=== PATIENT | female | born 1995 | race Two or more races ===

== ENCOUNTER 2018-02-05 21:51 | Emergency (ER) | payer MEDICAID ==
[~2018-02-05] VITALS: Ht 162.6 cm; Wt 90.3 kg
[2018-02-05] MEDS ORDERED: NKM (22:15)
[2018-02-05 22:25] VITALS: BP 129/81
--- NOTE | 2018-02-05 22:37 | Emergency Room Report ---
History of Present Illness General Chief Complaint: Abdominal Pain Source: Patient Present Illness HPI Patient presents with 3 days of nausea vomiting and abdominal pain. The pain is epigastric but also radiates to her back. She's been vomiting. Able to keep some fluids down however she's been eating solid food today. The pain is worse with eating. She's had fever and chills but not documented. There is no diarrhea. She is breast-feeding 7-month-old. There is no dysuria. She's never had pain like this before. Vomit has been food, no coffee grounds or blood. No melena. Pain rated 10/10, aching and burning, constant now. It had gradually increased over the time. LNMP 02/01 - doesn't believe she is . No URI sy, cough, dyspnea, rashes, chest pain, joint pain, dysuria. No known family history of gallstones. Allergies: Coded Allergies: No Known Allergies (Unverified , 02/15/16) Patient History Past Medical History: see triage record Social History: Reports: smoking Social History Narrative works at [employer] Last Menstrual Period: feb 01 Now: No Reviewed Nursing Documentation: PMH: Agreed; PSxH: Agreed Nursing Documentation-PMH Past Medical History: No Stated History Review of Systems All Other Systems: negative except mentioned in HPI Physical Exam Vital Signs Date Time Temp Pulse Resp B/P (MAP) Pulse Ox O2 Delivery O2 Flow Rate FiO2 02/05/18 22:11 99.9 102 18 129/81 98 Room Air Sp02 EP Interpretation: reviewed, normal General Appearance: well appearing, no apparent distress, GCS 15 Head: normocephalic Eyes: bilateral eye normal inspection, bilateral eye PERRL ENT: moist mucus membranes Neck: supple Respiratory: lungs clear, normal breath sounds Cardiovascular #1: regular rate, rhythm Cardiovascular #2: 2+ radial (R) Gastrointestinal: normal inspection, normal bowel sounds, no mass, non- distended, no rebound, guarding - minimal epigastric area, tenderness Genitourinary: no CVA tenderness Musculoskeletal: back normal, gait/station normal, normal range of motion Neurologic: alert, oriented x3, grossly normal Psychiatric: mood/affect normal Skin: normal inspection, warm/dry Medical Decision Making Diagnostic Impression: Primary Impression: Abdominal pain Qualified Codes: R10.13 - Epigastric pain ER Course Patient with epigastric and right upper quadrant pain. Differential includes gastroenteritis, pancreatitis, gallstones, cholecystitis, PUD amongst others. The patient will be evaluated with labs and given IV hydration, Pepcid , Zofran and analgesia. Consider that if elevated WBC and abnormal LFTs may need ultrasound. Clinically, she is at risk for cholecystitis. I also advised her that the medicines given here would enter her breast milk. Labs with normal WBC, H/H. CMP with min elevated glucose and alk phos. UA clear. Still with epigastric pain 9/10 and nausea (after morphine and zofran). Repeat Morphine and Zofan. Patient states significant relief after second dose. I discussed findings and stressed that she was being observed at home and to return if not significantly improved. In any case, she needs to follow p with her PMD next week. No surgical or medical emergency at this time. Patient stable for outpatient observation and treatment. Laboratory Tests Test 02/05/18 22:56 White Blood Count 8.5 K/UL (4.8-10.8) Red Blood Count 4.66 M/UL (4.20-5.40) Hemoglobin 12.7 G/DL (12.0-16.0) Hematocrit 36.8 % (37.0-47.0) L Mean Corpuscular Volume 79 FL (80-99) L Mean Corpuscular Hemoglobin 27.2 PG (27.0-31.0) Mean Corpuscular Hemoglobin Concent 34.4 G/DL (32.0-36.0) Red Cell Distribution Width 13.5 % (11.6-14.8) Platelet Count 276 K/UL (150-450) Mean Platelet Volume 9.2 FL (6.5-10.1) Neutrophils (%) (Auto) 54.7 % (45.0-75.0) Lymphocytes (%) (Auto) 33.2 % (20.0-45.0) Monocytes (%) (Auto) 8.7 % (1.0-10.0) Eosinophils (%) (Auto) 2.9 % (0.0-3.0) Basophils (%) (Auto) 0.5 % (0.0-2.0) Urine Color Pale yellow Urine Appearance Clear Urine pH 6.5 (4.5-8.0) Urine Specific [place] 1.010 (1.005-1.035) Urine Protein Negative (NEGATIVE) Urine Glucose (UA) Negative (NEGATIVE) Urine Ketones Negative (NEGATIVE) Urine Blood 1+ (NEGATIVE) H Urine Nitrite Negative (NEGATIVE) Urine Bilirubin Negative (NEGATIVE) Urine Urobilinogen Normal MG/DL (0.0-1.0) Urine Leukocyte Esterase 1+ (NEGATIVE) H Urine RBC 2-4 /HPF (0 - 2) H Urine WBC 2-4 /HPF (0 - 2) Urine Squamous Epithelial Cells Moderate /LPF (NONE/OCC) H Urine Bacteria None /HPF (NONE) Urine HCG, Qualitative Negative (NEGATIVE) Sodium Level 139 MMOL/L (136-145) Potassium Level 4.1 MMOL/L (3.5-5.1) Chloride Level 103 MMOL/L (98-107) Carbon Dioxide Level 26 MMOL/L (21-32) Anion Gap 10 mmol/L (5-15) Blood Urea Nitrogen 18 mg/dL (7-18) Creatinine 0.9 MG/DL (0.55-1.30) Estimate Glomerular Filtration Rate > 60 mL/min (>60) Glucose Level 109 MG/DL (74-106) H Calcium Level 8.9 MG/DL (8.5-10.1) Total Bilirubin 0.2 MG/DL (0.2-1.0) Aspartate Amino Transferase (AST) 30 U/L (15-37) Alanine Aminotransferase (ALT) 57 U/L (12-78) Alkaline Phosphatase 123 U/L (46-116) H Total Protein 8.7 G/DL (6.4-8.2) H Albumin 4.0 G/DL (3.4-5.0) Globulin 4.7 g/dL Albumin/Globulin Ratio 0.9 (1.0-2.7) L Lipase 204 U/L (73-393) Last Vital Signs Date Time Temp Pulse Resp B/P (MAP) Pulse Ox O2 Delivery O2 Flow Rate FiO2 02/06/18 02:48 98.6 81 18 137/91 97 Room Air Status: improved Disposition: HOME, SELF-CARE Condition: Improved Scripts Tramadol Hcl* (ULTRAM*) 50 Mg Tablet 50 MG ORAL Q6H PRN for For Pain, #6 TAB 0 Refills Prov: Boyd Gilbert MD 02/06/18 Acetaminophen (Tylenol) 325 Mg Tablet 650 MG ORAL Q6H PRN for Prn Pain/Headache/Temp > 101, #20 TAB 0 Refills Prov: Boyd Gilbert MD 02/06/18 Ondansetron Odt* (ZOFRAN ODT*) 4 Mg Tab.rapdis 4 MG BC EVERY 8 HOURS, #6 TAB 1 Refill Prov: Boyd Gilbert MD 02/06/18 Boyd Gilbert MD Feb 05, 2018 22:37
[2018-02-05] MEDS ORDERED: Morphine Sulfate 4mg/ml Inj (IV/IM USE ONLY) IVP ONE (22:45)
[2018-02-05 23:16] LABS: APPEARANCE,URINE CLEAR; BILIRUBIN, URINE NEGATIVE (NEGATIVE); COLOR,URINE PALE YELLOW; GLUCOSE, URINE (UA) NEGATIVE (NEGATIVE); KETONES,URINE NEGATIVE (NEGATIVE); LEUKOCYTE ESTERASE ,URINE 1+ (NEGATIVE); NITRITE,URINE NEGATIVE (NEGATIVE); PH,URINE 6.5 (4.5-8.0); PROTEIN,URINE NEGATIVE (NEGATIVE); UROBILINOGEN,URINE NORMAL MG/DL (0.0-1.0)
[2018-02-05 23:18] LABS: BASOPHILS % (AUTO) 0.5 % (0.0-2.0); EOSINOPHILS % (AUTO) 2.9 % (0.0-3.0); HEMATOCRIT 36.8 % (37.0-47.0); HEMOGLOBIN 12.7 G/DL (12.0-16.0); LYMPHOCYTES % (AUTO) 33.2 % (20.0-45.0); MEAN CORPUSCULAR VOLUME 79 FL (80-99); MONOCYTES % (AUTO) 8.7 % (1.0-10.0); NEUTROPHILS % (AUTO) 54.7 % (45.0-75.0); PLATELET COUNT 276 K/UL (150-450); RED BLOOD COUNT 4.66 M/UL (4.20-5.40); RED CELL DISTRIBUTION WIDTH 13.5 % (11.6-14.8); WHITE BLOOD COUNT 8.5 K/UL (4.8-10.8)
[2018-02-05 23:24] LABS: ANION GAP 10 mmol/L (5-15); BLOOD UREA NITROGEN 18 mg/dL (7-18); CALCIUM 8.9 MG/DL (8.5-10.1); CARBON DIOXIDE 26 MMOL/L (21-32); CHLORIDE 103 MMOL/L (98-107); CREATININE 0.9 MG/DL (0.55-1.30); POTASSIUM 4.1 MMOL/L (3.5-5.1); SODIUM 139 MMOL/L (136-145)
[2018-02-05 23:29] LABS: ALANINE AMINOTRANSFERASE 57 U/L (12-78); ALBUMIN/GLOBULIN RATIO 0.9 (1.0-2.7); ALKALINE PHOSPHATASE 123 U/L (46-116); ASPARTATE AMINO TRANSFERASE 30 U/L (15-37); BILIRUBIN,TOTAL 0.2 MG/DL (0.2-1.0)
[2018-02-06] MEDS ORDERED: Morphine Sulfate 4mg/ml Inj (IV/IM USE ONLY) IVP ONE (01:00)
[2018-02-06] MEDS ORDERED: TRAMADOL HCL50 MG ORAL (02:38)
[2018-02-06] MEDS ORDERED: ONDANSETRON ODT4 MG BC (02:38)
[2018-02-06] MEDS ORDERED: TYLENOL325 MG ORAL (02:38)
[2018-02-06 02:48] VITALS: BP 137/91
== END 2018-02-06 02:50 | disposition home or self-care (01) ==
LOC: EMR 22:30
DX: R10.13 Epigastric pain (principal); R10.11 Right upper quadrant pain; R11.2 Nausea with vomiting, unspecified; F17.200 Nicotine dependence, unspecified, uncomplicated
CPT/HCPCS: 36415; 80053; 81003; 81025; 83690; 85025; 96361; 96374; 96375; 96376; 99284; J2270; J2405; S0028

== ENCOUNTER 2018-03-02 06:56 | Inpatient (IN) | payer SELFPAY ==
[~2018-03-02] VITALS: Ht 162.6 cm; Wt 88.5 kg
[~2018-03-02 06:56] MED LIST: NKM; ONDANSETRON ODT4 MG BC; TRAMADOL HCL50 MG ORAL; TYLENOL325 MG ORAL
[2018-03-02] MEDS ORDERED: NKM (07:08)
[2018-03-02] MEDS ORDERED: D5W IV ONE ×4 (07:15→14:30)
[2018-03-02] MEDS ORDERED: ACETADOTE IV ONE ×5 (07:15→14:30)
[2018-03-02] MEDS ORDERED: Activated Charcoal 50gm/240ml Btl ORAL ONE (07:15)
--- NOTE | 2018-03-02 07:24 | Emergency Room Report ---
History of Present Illness General Chief Complaint: Overdose Source: Patient Present Illness HPI Patient presents brought in by sister reporting that approximately 3 hours prior to arrival at 4:00 in the morning she took a handful of Tylenol she feels likely 20 pills Unclear of the dosage of the medication Unclear the type of Tylenol Patient was vomiting in the morning and therefore was brought in by sister Patient still reports nausea epigastric discomfort Denies any chest pain or shortness of breath denies any lower abdominal pain This was and intentional ingestion Allergies: Coded Allergies: No Known Allergies (Unverified , 02/15/16) Patient History Past Medical History: see triage record Pertinent Family History: none Last Menstrual Period: n/a Reviewed Nursing Documentation: PMH: Agreed; PSxH: Agreed Nursing Documentation-PMH Past Medical History: No Stated History Review of Systems All Other Systems: negative except mentioned in HPI Physical Exam Vital Signs Date Time Temp Pulse Resp B/P (MAP) Pulse Ox O2 Delivery O2 Flow Rate FiO2 03/02/18 07:04 99.1 100 22 126/93 100 Room Air Sp02 EP Interpretation: reviewed, normal General Appearance: no apparent distress - however patient is mildly sluggish Head: normocephalic, atraumatic Eyes: bilateral eye PERRL, bilateral eye EOMI ENT: normal pharynx, no angioedema Neck: supple, thyroid normal Respiratory: lungs clear, no retraction, no accessory muscle use Cardiovascular #1: regular rate, rhythm Gastrointestinal: soft Genitourinary: no CVA tenderness Musculoskeletal: normal inspection Neurologic: alert, oriented x3, responsive Psychiatric: other - Suicidal gesture Skin: normal color, no rash Lymphatic: no adenopathy Procedures Critical Care Time Critical Care Time 80 minutes for initial critical presentation concerning for Tylenol toxicity and overdose requiring acute intervention, contact with poison control not involving any procedural time Medical Decision Making Diagnostic Impression: Primary Impression: Tylenol overdose Additional Impression: Overdose by acetaminophen ER Course Given the patient's presentation initial reports This is extremely dangerous presentation Patient started on IV Mucomyst IV hydration It has been well over 3 hours since time of ingestion therefore charcoal was held Patient's initial Tylenol level is extremely concerning at over 150 Mucomyst IV protocol continues Poison control had been contacted and patient requires high level of care admission Labs Test 03/02/18 07:10 03/02/18 07:16 03/02/18 10:15 White Blood Count 8.7 K/UL (4.8-10.8) Red Blood Count 4.59 M/UL (4.20-5.40) Hemoglobin 12.9 G/DL (12.0-16.0) Hematocrit 38.4 % (37.0-47.0) Mean Corpuscular Volume 84 FL (80-99) Mean Corpuscular Hemoglobin 28.2 PG (27.0-31.0) Mean Corpuscular Hemoglobin Concent 33.7 G/DL (32.0-36.0) Red Cell Distribution Width 13.8 % (11.6-14.8) Platelet Count 265 K/UL (150-450) Mean Platelet Volume 8.5 FL (6.5-10.1) Neutrophils (%) (Auto) 57.7 % (45.0-75.0) Lymphocytes (%) (Auto) 33.0 % (20.0-45.0) Monocytes (%) (Auto) 7.1 % (1.0-10.0) Eosinophils (%) (Auto) 1.4 % (0.0-3.0) Basophils (%) (Auto) 0.8 % (0.0-2.0) Sodium Level 138 MMOL/L (136-145) Potassium Level 3.7 MMOL/L (3.5-5.1) Chloride Level 102 MMOL/L (98-107) Carbon Dioxide Level 21 MMOL/L (21-32) Anion Gap 15 mmol/L (5-15) Blood Urea Nitrogen 11 mg/dL (7-18) Creatinine 0.7 MG/DL (0.55-1.30) Estimat Glomerular Filtration Rate > 60 mL/min (>60) Glucose Level 122 MG/DL (74-106) Calcium Level 8.9 MG/DL (8.5-10.1) Total Bilirubin 0.3 MG/DL (0.2-1.0) Aspartate Amino Transf (AST/SGOT) 34 U/L (15-37) Alanine Aminotransferase (ALT/SGPT) 63 U/L (12-78) Alkaline Phosphatase 104 U/L (46-116) Total Protein 8.2 G/DL (6.4-8.2) Albumin 4.1 G/DL (3.4-5.0) Globulin 4.1 g/dL Albumin/Globulin Ratio 1.0 (1.0-2.7) Salicylates Level 2.3 ug/mL (2.8-20) Acetaminophen Level 153 MCG/ML (10-30) 66 MCG/ML (10-30) Serum Alcohol < 3 mg/dL Urine Color Pale yellow Urine Appearance Clear Urine pH 5 (4.5-8.0) Urine Specific [place] 1.015 (1.005-1.035) Urine Protein 1+ (NEGATIVE) Urine Glucose (UA) Negative (NEGATIVE) Urine Ketones 1+ (NEGATIVE) Urine Blood 2+ (NEGATIVE) Urine Nitrite Negative (NEGATIVE) Urine Bilirubin Negative (NEGATIVE) Urine Urobilinogen Normal MG/DL (0.0-1.0) Urine Leukocyte Esterase 1+ (NEGATIVE) Urine RBC 2-4 /HPF (0 - 2) Urine WBC 2-4 /HPF (0 - 2) Urine Squamous Epithelial Cells Few /LPF (NONE/OCC) Urine Bacteria Occasional /HPF (NONE) Urine HCG, Qualitative Negative (NEGATIVE) Urine Opiates Screen Negative (NEGATIVE) Urine Barbiturates Screen Negative (NEGATIVE) Phencyclidine (PCP) Screen Negative (NEGATIVE) Urine Amphetamines Screen Negative (NEGATIVE) Urine Benzodiazepines Screen Negative (NEGATIVE) Urine Cocaine Screen Negative (NEGATIVE) Urine Marijuana (THC) Screen Negative (NEGATIVE) Rhythm Strip Diag. Results EP Interpretation: yes Rate: 66 Rhythm: NSR, no PVC's, no ectopy Last Vital Signs Date Time Temp Pulse Resp B/P (MAP) Pulse Ox O2 Delivery O2 Flow Rate FiO2 03/02/18 07:04 99.1 100 22 126/93 100 Room Air Status: improved Disposition: ADMITTED INPATIENT Condition: Serious Referrals: NOT CHOSEN IPA/,REFERRING (PCP) Kit Leroy DO Mar 02, 2018 07:24
[2018-03-02 07:27] LABS: BASOPHILS % (AUTO) 0.8 % (0.0-2.0); EOSINOPHILS % (AUTO) 1.4 % (0.0-3.0); HEMATOCRIT 38.4 % (37.0-47.0); HEMOGLOBIN 12.9 G/DL (12.0-16.0); MEAN CORPUSCULAR VOLUME 84 FL (80-99); MONOCYTES % (AUTO) 7.1 % (1.0-10.0); NEUTROPHILS % (AUTO) 57.7 % (45.0-75.0); PLATELET COUNT 265 K/UL (150-450); RED BLOOD COUNT 4.59 M/UL (4.20-5.40); RED CELL DISTRIBUTION WIDTH 13.8 % (11.6-14.8); WHITE BLOOD COUNT 8.7 K/UL (4.8-10.8)
--- NOTE | 2018-03-02 07:36 | NUR ---
ED Nurse Note: Pt was brought into the ER by her sister for taking over 20 pills of Tylenol. Does not know dose and exactly how many. Pt was sleeping but able to answer questions when prompted to. When asked why she took it, she said that she was having problems. Pt lives with her boyfriend. Sister at the bedside. Pt took the medications at 4am with intention. Urine has been collected and sent to lab. As per ERMD, hold charcoal due to pt taking medication 3 hours ago.
[2018-03-02 07:39] VITALS: BP 126/93
--- NOTE | 2018-03-02 07:45 | NUR ---
ED Nurse Note: Currently pt denies to harm herself right now. Will contiue to monitor.
[2018-03-02 07:48] LABS: ANION GAP 15 mmol/L (5-15); BLOOD UREA NITROGEN 11 mg/dL (7-18); CALCIUM 8.9 MG/DL (8.5-10.1); CARBON DIOXIDE 21 MMOL/L (21-32); CHLORIDE 102 MMOL/L (98-107); CREATININE 0.7 MG/DL (0.55-1.30); POTASSIUM 3.7 MMOL/L (3.5-5.1); SODIUM 138 MMOL/L (136-145)
[2018-03-02 07:51] LABS: APPEARANCE,URINE CLEAR; BILIRUBIN, URINE NEGATIVE (NEGATIVE); COLOR,URINE PALE YELLOW; GLUCOSE, URINE (UA) NEGATIVE (NEGATIVE); KETONES,URINE 1+ (NEGATIVE); LEUKOCYTE ESTERASE ,URINE 1+ (NEGATIVE); NITRITE,URINE NEGATIVE (NEGATIVE); PH,URINE 5 (4.5-8.0); PROTEIN,URINE 1+ (NEGATIVE); UROBILINOGEN,URINE NORMAL MG/DL (0.0-1.0)
[2018-03-02 07:52] LABS: ALANINE AMINOTRANSFERASE 63 U/L (12-78); ALBUMIN 4.1 G/DL (3.4-5.0); ALKALINE PHOSPHATASE 104 U/L (46-116); ASPARTATE AMINO TRANSFERASE 34 U/L (15-37); BILIRUBIN,TOTAL 0.3 MG/DL (0.2-1.0)
--- NOTE | 2018-03-02 08:02 | NUR ---
ED Nurse Note: Was notified by lab that pt is hcg neg.
[2018-03-02 08:41] VITALS: BP 118/87
--- NOTE | 2018-03-02 10:24 | NUR ---
ED Nurse Note: Blood for second tylenol level has been collected and sent to lab.
--- NOTE | 2018-03-02 10:48 | NUR ---
ED Nurse Note: Spoke to lab, they will process tylenol level.
[2018-03-02 10:49] VITALS: BP 129/91
--- NOTE | 2018-03-02 11:57 | NUR ---
ED Nurse Note: Gave telephone order to SHERLYN Del Valle.
--- NOTE | 2018-03-02 11:58 | NUR ---
ED Nurse Note: As per ERMD, can send pt up to unit with 2nd bag of acetadote hanging. Waiting for admission packet.
--- NOTE | 2018-03-02 12:00 | NUR ---
NURSE NOTES: Report received from SHERLYN Wall from ED. Awaiting for the patient.
--- NOTE | 2018-03-02 12:35 | NUR ---
ED Nurse Note: PT TAKEN UP TO [facility] VIA GURNEY ON [employer] ME[employer]OR WITH PATENT IV RUNNING MEDICATION, AND ALL BELONGINGS ACCOMPANIED BY SHERLYN BAUTISTA AND EMT.
--- NOTE | 2018-03-02 12:40 | NUR ---
NURSE NOTES: Patient arrived to unit via gurney accompanied with RN. Pt. is alert and oriented x 4 and verbally responsive. Belongings checked with patient. Complains of pain on right wrist when touch. Pt. stated that she might hit her hand. No distress noted in room air. IV site intact and patent. Skin assessment done with no skin problems noted. Vitals stable. clinical research monitor applied to the patient. Family member at bedside. Bed in lowest position. Call light within reach. Will continue to monitor.
[2018-03-02 12:50] VITALS: BP 139/98
[2018-03-02] MEDS ORDERED: D5W IVPB ONE (13:30)
[2018-03-02] MEDS ORDERED: ACETADOTE IVPB ONE (13:30)
--- NOTE | 2018-03-02 14:28 | History and Physical ---
History of Present Illness General Date patient seen: Mar 02, 2018 Time patient seen: 14:18 Reason for Hospitalization: Overdose Present Illness HPI 23 yo female with no sig pmh presents by sister reporting that approximately 3 hours prior to arrival at 4:00 in the morning she took a handful of Tylenol she feels likely 20 pills. Patient is unclear of the dosage of medication or type. Patient was having nausea/vomiting and epigastric abdominal pain this morning. Denies any cp or sob. Patient admits to Suicide Attempt, this was an intentional ingestion, states she has been feeling depressed, denies SI at this moment, when asking what lead her to feel this way she states that she "doesnt want to talk about it". Denies any previous attempts in the past. patient started on acedote in ED. psych consulted. tylenol level 153 social hx reviewed: denies alcohol use or drug use, denies smoking code status reviewed: full code past fam hx reviewed, denies any sig past fam hx Allergies: Coded Allergies: No Known Allergies (Unverified , 02/15/16) Medication History Scheduled No Known Medications* (NKM - No Known Medications*), 0 ., (Reported) No Known Medications* (NKM - No Known Medications*), 0 ., (Reported) Ondansetron Odt* (Zofran Odt*), 4 MG BC EVERY 8 HOURS Scheduled PRN Acetaminophen (Tylenol), 650 MG ORAL Q6H PRN for Prn Pain/Headache/Temp > 101 Tramadol Hcl* (Ultram*), 50 MG ORAL Q6H PRN for For Pain Patient History History Provided By: Patient, Medical Record Healthcare decision maker Resuscitation status Full Code Advanced Directive on File Review of Systems ROS Narrative 14 point ROS reviewed and negative except for the above HPI Physical Exam General Appearance: WD/WN, no apparent distress, alert Lines, tubes and drains: peripheral HEENT: normocephalic, atraumatic, mucous membranes moist, PERRL Neck: non-tender, normal alignment, supple, normal inspection Respiratory/Chest: chest wall non-tender, lungs clear, normal breath sounds, no respiratory distress, no accessory muscle use Cardiovascular/Chest: normal peripheral pulses, normal rate, regular rhythm Abdomen: normal bowel sounds, non tender, soft, no organomegaly, no mass Extremities: normal range of motion, non-tender, normal inspection, no calf tenderness, normal capillary refill Skin Exam: normal pigmentation, warm/dry Neurologic: quick mixer operator II-XII grossly normal, no motor/sensory deficits, alert, oriented x 3, responsive, normal mood/affect Last 24 Hour Vital Signs Date Time Temp Pulse Resp B/P (MAP) Pulse Ox O2 Delivery O2 Flow Rate FiO2 03/02/18 13:17 97.5 88 22 109/88 100 Room Air 03/02/18 13:07 Room Air 03/02/18 12:50 97.3 82 20 139/98 (112) 98 03/02/18 10:49 98.8 85 17 129/91 100 Room Air 03/02/18 08:41 98.9 76 16 118/87 99 Room Air 03/02/18 07:39 99.1 100 21 126/93 99 Room Air 03/02/18 07:39 100 21 Room Air 99 03/02/18 07:04 99.1 100 22 126/93 100 Room Air Laboratory Tests Test 03/02/18 07:10 03/02/18 07:16 03/02/18 10:15 White Blood Count 8.7 K/UL (4.8-10.8) Red Blood Count 4.59 M/UL (4.20-5.40) Hemoglobin 12.9 G/DL (12.0-16.0) Hematocrit 38.4 % (37.0-47.0) Mean Corpuscular Volume 84 FL (80-99) Mean Corpuscular Hemoglobin 28.2 PG (27.0-31.0) Mean Corpuscular Hemoglobin Concent 33.7 G/DL (32.0-36.0) Red Cell Distribution Width 13.8 % (11.6-14.8) Platelet Count 265 K/UL (150-450) Mean Platelet Volume 8.5 FL (6.5-10.1) Neutrophils (%) (Auto) 57.7 % (45.0-75.0) Lymphocytes (%) (Auto) 33.0 % (20.0-45.0) Monocytes (%) (Auto) 7.1 % (1.0-10.0) Eosinophils (%) (Auto) 1.4 % (0.0-3.0) Basophils (%) (Auto) 0.8 % (0.0-2.0) Sodium Level 138 MMOL/L (136-145) Potassium Level 3.7 MMOL/L (3.5-5.1) Chloride Level 102 MMOL/L (98-107) Carbon Dioxide Level 21 MMOL/L (21-32) Anion Gap 15 mmol/L (5-15) Blood Urea Nitrogen 11 mg/dL (7-18) Creatinine 0.7 MG/DL (0.55-1.30) Estimat Glomerular Filtration Rate > 60 mL/min (>60) Glucose Level 122 MG/DL (74-106) H Calcium Level 8.9 MG/DL (8.5-10.1) Total Bilirubin 0.3 MG/DL (0.2-1.0) Aspartate Amino Transf (AST/SGOT) 34 U/L (15-37) Alanine Aminotransferase (ALT/SGPT) 63 U/L (12-78) Alkaline Phosphatase 104 U/L (46-116) Total Protein 8.2 G/DL (6.4-8.2) Albumin 4.1 G/DL (3.4-5.0) Globulin 4.1 g/dL Albumin/Globulin Ratio 1.0 (1.0-2.7) Salicylates Level 2.3 ug/mL (2.8-20) L Acetaminophen Level 153 MCG/ML (10-30) H 66 MCG/ML (10-30) H Serum Alcohol < 3 mg/dL Urine Color Pale yellow Urine Appearance Clear Urine pH 5 (4.5-8.0) Urine Specific [place] 1.015 (1.005-1.035) Urine Protein 1+ (NEGATIVE) H Urine Glucose (UA) Negative (NEGATIVE) Urine Ketones 1+ (NEGATIVE) H Urine Blood 2+ (NEGATIVE) H Urine Nitrite Negative (NEGATIVE) Urine Bilirubin Negative (NEGATIVE) Urine Urobilinogen Normal MG/DL (0.0-1.0) Urine Leukocyte Esterase 1+ (NEGATIVE) H Urine RBC 2-4 /HPF (0 - 2) H Urine WBC 2-4 /HPF (0 - 2) Urine Squamous Epithelial Cells Few /LPF (NONE/OCC) Urine Bacteria Occasional /HPF (NONE) Urine HCG, Qualitative Negative (NEGATIVE) Urine Opiates Screen Negative (NEGATIVE) Urine Barbiturates Screen Negative (NEGATIVE) Phencyclidine (PCP) Screen Negative (NEGATIVE) Urine Amphetamines Screen Negative (NEGATIVE) Urine Benzodiazepines Screen Negative (NEGATIVE) Urine Cocaine Screen Negative (NEGATIVE) Urine Marijuana (THC) Screen Negative (NEGATIVE) Height (Feet): 5 Height (Inches): 4.00 Weight (Pounds): 170 Medications Current Medications Medications (Trade) Dose Ordered Sig/Paul Route PRN Reason Start Time Stop Time Status Last Admin Dose Admin Acetylcysteine 7700 mg/Dextrose 1,038.5 ml @ 62.5 mls/ hr ONCE ONCE IV 03/02/18 14:30 03/03/18 07:06 Assessment/Plan Status: stable Assessment/Plan #Suicidal Attempt #Depression #Tylenol Overdose tylenol level 153, trend tylenol level q6hrs, seems to be uptrending acetadote ordered IVF psych consult sitter safety tray for meals denies ingesting anything else denies any SI currently q4hr neuro checks tele diet: regular DVT Prophylaxis: SCD, HSQ Code Status: Full Hospital Classification Declaration: Based on this initial evaluation, and depending on the patient's clinical course, I anticipate that this patient will require hospitalization for 2-3 days for tylenol overdose and Suicide attempt and close respiratory/hemodynamic monitoring. Disposition: Once the patient is stable to leave the hospital, I anticipate the patient will likely be discharged to the following environment: home with HH vs SNF I spent 69 minutes on this patient's case, and 45 minutes were dedicated to counseling and/or care coordination. Discussed with patient/family, nursing staff, SW/CM regarding clinical status, treatment course, and disposition planning. Time of note may not reflect time of encounter. ---- Date of Discussion: 03/02/18 A [id number] discussion with the patient regarding the patient's advanced care planning took place during this hospitalization on the above date. The discussion included the explanation and discussion of advance directives and associated forms/documents, as well as the patient's current code status. We also discussed at length the patient's medical conditions (both acute and chronic), general prognosis, treatment options, and goals of care. The following summarizes the discussion: Advance Care Planning/Goals of Care: - Will attempt to fill out an AD and/or POLST with the patient prior to discharge, if not already completed - Continue current evaluation and management of any acute and chronic medical issues - Will continue to support the patient/family - Will continue to discuss both short- and long-term goals of care DPOA-HC/Surrogate Decision Maker: None currently appointed Code Status: Full Code AD Forms/Documents Completed: Deferred A total of 35 minutes was spent on this discussion, including counseling, answering questions, and completing, if any, pertinent advanced care planning forms/documents. Yogi Ross MD Mar 02, 2018 14:28
[2018-03-02 16:00] VITALS: BP 138/93
--- NOTE | 2018-03-02 18:59 | NUR ---
HAND-OFF: Report given to SHERLYN Ellis. Stable condition.
--- NOTE | 2018-03-02 19:05 | NUR ---
NURSE NOTES: Report received from SHERLYN Del Valle. Observed pt lying on the bed, talking with family member. Family member at the bed side and going to stay with her tonight. Telemonitor: SR, with no distress noted. Pt on room air with saturating at 100%. IV site on L AC 18G, intact and patent. When asked about harming herself, pt answers yes and saying pt has problem with life situation but no detailed plan. Pt has pain on right wrist, 10/10 and awaiting for X-ray result. Bed in the lowest position. Side rails up x2. Call light within reach. Will continue to monitor.
[2018-03-02 20:00] VITALS: BP 120/78
--- NOTE | 2018-03-02 20:21 | Diagnostic Imaging Report ---
EXAM: XR Right Wrist Complete, 3 or More Views CLINICAL HISTORY: PAIN TECHNIQUE: Frontal, lateral and oblique views of the right wrist. COMPARISON: No relevant prior studies available. FINDINGS: Bones/joints: Possible nondisplaced hamate fracture, versus artifact. No acute dislocation. Soft tissues: Soft tissue swelling. No radiopaque foreign body. IMPRESSION: Possible nondisplaced hamate fracture, versus artifact.
[2018-03-02] MEDS: Morphine Sulfate 4mg/ml Inj (IV/IM USE ONLY) IVP PRN (22:05)
--- NOTE | 2018-03-02 22:57 | NUR ---
NURSE NOTES: Observed pt lying on the bed, talking with her sister on bed side. X-ray result done and notified to MD. PRN pain med given. Will continue to monitor.
[2018-03-03] VITALS: BP 123/67
[2018-03-03] MEDS: Morphine Sulfate 4mg/ml Inj (IV/IM USE ONLY) IVP PRN ×3 (01:33→16:38)
[2018-03-03 04:00] VITALS: BP 130/80
[2018-03-03 07:28] LABS: BASOPHILS % (AUTO) 0.5 % (0.0-2.0); EOSINOPHILS % (AUTO) 2.8 % (0.0-3.0); HEMATOCRIT 35.9 % (37.0-47.0); HEMOGLOBIN 12.5 G/DL (12.0-16.0); LYMPHOCYTES % (AUTO) 24.9 % (20.0-45.0); MEAN CORPUSCULAR VOLUME 83 FL (80-99); MONOCYTES % (AUTO) 6.2 % (1.0-10.0); NEUTROPHILS % (AUTO) 65.5 % (45.0-75.0); PLATELET COUNT 223 K/UL (150-450); RED BLOOD COUNT 4.33 M/UL (4.20-5.40); RED CELL DISTRIBUTION WIDTH 13.7 % (11.6-14.8)
[2018-03-03 07:39] LABS: ALANINE AMINOTRANSFERASE 54 U/L (12-78); ALBUMIN 3.6 G/DL (3.4-5.0); ALKALINE PHOSPHATASE 94 U/L (46-116); ANION GAP 11 mmol/L (5-15); ASPARTATE AMINO TRANSFERASE 18 U/L (15-37); BILIRUBIN,TOTAL 0.4 MG/DL (0.2-1.0); BLOOD UREA NITROGEN 8 mg/dL (7-18); CALCIUM 8.9 MG/DL (8.5-10.1); CARBON DIOXIDE 24 MMOL/L (21-32); CHLORIDE 103 MMOL/L (98-107); CREATININE 0.7 MG/DL (0.55-1.30); POTASSIUM 3.4 MMOL/L (3.5-5.1); SODIUM 138 MMOL/L (136-145)
--- NOTE | 2018-03-03 07:43 | General Progress Note ---
Assessment/Plan Status: stable Assessment/Plan #Suicidal Attempt #Depression #Tylenol Overdose #Nausea tylenol level 153 on admit, trended tylenol level, neg now acetadote given cont to monitor LFTs, seems to have stabilized zofran prn IVF psych consulted, pending recs sitter safety tray for meals tylenol and alcohol ingestion denies any SI currently q4hr neuro checks tele #Smoker smoking 1-2 cigarettes per day educated on smoking cessation for over 15 mins today, patient states she understands and will try to stop #Alcohol abuse drank alcohol yesterday, unsure of how much denies daily use of alcohol or past abuse educated on alcohol cessation for over 15 mins today , states she understands diet: regular DVT Prophylaxis: SCD, HSQ Code Status: Full Hospital Classification Declaration: Based on this initial evaluation, and depending on the patient's clinical course, I anticipate that this patient will require hospitalization for 2-3 days for tylenol overdose and Suicide attempt and close respiratory/hemodynamic monitoring. Disposition: Once the patient is stable to leave the hospital, I anticipate the patient will likely be discharged to the following environment: home with vs SNF I spent 56 minutes on this patient's case, and 43 minutes were dedicated to counseling and/or care coordination. Discussed with patient/family, nursing staff, SW/CM regarding clinical status, treatment course, and disposition planning. Time of note may not reflect time of encounter. ---- Date of Discussion: 03/02/18 A [id number] discussion with the patient regarding the patient's advanced care planning took place during this hospitalization on the above date. The discussion included the explanation and discussion of advance directives and associated forms/documents, as well as the patient's current code status. We also discussed at length the patient's medical conditions (both acute and chronic), general prognosis, treatment options, and goals of care. The following summarizes the discussion: Advance Care Planning/Goals of Care: - Will attempt to fill out an AD and/or POLST with the patient prior to discharge, if not already completed - Continue current evaluation and management of any acute and chronic medical issues - Will continue to support the patient/family - Will continue to discuss both short- and long-term goals of care DPOA-HC/Surrogate Decision Maker: None currently appointed Code Status: Full Code AD Forms/Documents Completed: Deferred A total of 35 minutes was spent on this discussion, including counseling, answering questions, and completing, if any, pertinent advanced care planning forms/documents. Subjective Date patient seen: Mar 03, 2018 Time patient seen: 07:38 Allergies: Coded Allergies: No Known Allergies (Unverified , 02/15/16) Subjective f/u SI, tylenol overdose today admits to alcohol use yesterday however denies regular use of alcohol also admits to smoking around 1-2 cigarettes per day denies any other drug use states overall she is feeling a bit better however is having nausea but no vomiting, no abd pain feels a bit weak currently denying SI sitter at bedside family sleeping in room with patient denies fevers/chills/cp/sob/diarrhea/constipation ROS: 14 point ROS reviewed and negative except per the above subjective Objective Last 24 Hour Vital Signs Date Time Temp Pulse Resp B/P (MAP) Pulse Ox O2 Delivery O2 Flow Rate FiO2 03/03/18 04:00 98.5 79 20 130/80 (97) 98 03/03/18 04:00 80 03/03/18 04:00 Room Air 03/03/18 00:00 Room Air 03/03/18 00:00 81 03/03/18 00:00 98.8 89 20 123/67 (85) 100 03/02/18 20:00 98.5 88 20 120/78 (92) 100 03/02/18 20:00 Room Air 03/02/18 16:00 Room Air 03/02/18 16:00 81 03/02/18 16:00 97.5 69 20 138/93 (108) 99 03/02/18 13:17 97.5 88 22 109/88 100 Room Air 03/02/18 13:10 78 03/02/18 13:07 Room Air 03/02/18 12:50 97.3 82 20 139/98 (112) 98 03/02/18 10:49 98.8 85 17 129/91 100 Room Air 03/02/18 08:41 98.9 76 16 118/87 99 Room Air 03/02/18 07:39 99.1 100 21 126/93 99 Room Air 03/02/18 07:39 100 21 Room Air 99 Intake and Output 03/02/18 03/03/18 19:00 07:00 Intake Total 488.5 ml 887.5 ml Balance 488.5 ml 887.5 ml Intake Oral 250 ml 200 ml IV Total 238.5 ml 687.5 ml # Voids 4 3 Laboratory Tests 03/02/18 10:15: Acetaminophen Level 66H 03/02/18 19:25: Acetaminophen Level < 2L 03/03/18 00:50: Acetaminophen Level < 2L 03/03/18 06:50: Acetaminophen Level [Pending], White Blood Count 10.0, Red Blood Count 4.33, Hemoglobin 12.5, Hematocrit 35.9L, Mean Corpuscular Volume 83, Mean Corpuscular Hemoglobin 28.8, Mean Corpuscular Hemoglobin Concent 34.7, Red Cell Distribution Width 13.7, Platelet Count 223, Mean Platelet Volume 8.8, Neutrophils (%) (Auto) 65.5, Lymphocytes (%) (Auto) 24.9, Monocytes (%) (Auto) 6.2, Eosinophils (%) (Auto) 2.8, Basophils (%) (Auto) 0.5, Sodium Level [Pending ], Potassium Level [Pending], Chloride Level [Pending], Carbon Dioxide Level [ Pending], Blood Urea Nitrogen [Pending], Creatinine [Pending], Estimat Glomerular Filtration Rate [Pending], Glucose Level [Pending], Calcium Level [ Pending], Total Bilirubin [Pending], Aspartate Amino Transf (AST/SGOT) [Pending] , Alanine Aminotransferase (ALT/SGPT) [Pending], Alkaline Phosphatase [Pending] , Total Protein [Pending], Albumin [Pending], Globulin [Pending] Height (Feet): 5 Height (Inches): 4.00 Weight (Pounds): 170 Objective General Appearance: WD/WN, no apparent distress, alert Lines, tubes and drains: peripheral HEENT: normocephalic, atraumatic, mucous membranes moist, PERRL Neck: non-tender, normal alignment, supple, normal inspection Respiratory/Chest: chest wall non-tender, lungs clear, normal breath sounds, no respiratory distress, no accessory muscle use Cardiovascular/Chest: normal peripheral pulses, normal rate, regular rhythm Abdomen: normal bowel sounds, non tender, soft, no organomegaly, no mass Extremities: normal range of motion, non-tender, normal inspection, no calf tenderness, normal capillary refill Skin Exam: normal pigmentation, warm/dry Neurologic: director of grants II-XII grossly normal, no motor/sensory deficits, alert, oriented x 3, responsive, normal mood/affect Yogi Ross MD Mar 03, 2018 07:43
--- NOTE | 2018-03-03 07:51 | NUR ---
HAND-OFF: Report given to SHERLYN Mcpherson. Observed pt talking with her sister on the bed. No acute distress noted at this time.
[2018-03-03 08:00] VITALS: BP 117/74
--- NOTE | 2018-03-03 08:00 | NUR ---
NURSE NOTES: Patient awake alert&oriented x4. Sitter and family at bedside. Unable to ask patient regarding suicidal thoughts with family present - will re-assess when family is awake and steps out of the room. Patient on room air. Saturating 100%. Patient on regular diet. No bowel movement for 3 days but patient stated that's her regular routine. R wrist fracture possibility through x-ray. L AC 18. Potassium 3.4 dr. Ross aware orders obtained. Lung sounds clear. Bowel sounds present on 4 quadrants. No pain or distress noted. patient denies any discomfort at this time. VSS. No distress noted. HOB elevated, Bed on lowest position, call light within reach, bed alarm on for safety. Will continue plan of care.
--- NOTE | 2018-03-03 10:22 | NUR ---
Social Work This Sw met with patient due to a recent overdose with Tylenol. Patient stating she had been using excessive alcohol ("because of the New Years, I don't usually drink much alcohol"). Patient explained she has been having depression for the past six months, not taking any medication and "I would like some help with this." Patient admitted to having suicidal thoughts today as well. Sterling and her sister currently at bedside with patient. Patient explained she would be agreeable to transferring to an inpatient Psychiatric unit for further assistance. This Sw also provided outpatient mental health resources and crisis suicide hotline as well. Pending Dr. Harden, Psychiatry recommendations at this time. Patient stating she lives with her boyfriend and two children (ages 8 and 8 months). Patient denied any domestic violence, nor history of substance abuse, mental health concerns in the past. This SW questioning possible depression symptoms as well. SW to follow.
--- NOTE | 2018-03-03 10:44 | Consultation ---
History of Present Illness General Chief Complaint: Overdose Present Illness HPI 23 yo female with hx of low level of depression that got worse over the past several months. The pt was bib sister reporting that the pt took Tylenol (20 pills). The pt endorses depressed mood, anhedonia, fatigue and suicidal thoughts. the pt s sister was in the room and accompanying the pt. the pt is not having a plan. the pt has no intention to end her life however was afraid to be discharged and go home in this condition. the pt has a baby who has been with the pts mother. the pt stated that she has been through relationship issues with the boyfriend. the pt stated that the bf has cheated on her for a while. the pt would like to be started on sleeping and depressive medications. The pt does not endorse any psychotic/manic sxs. Allergies: Coded Allergies: No Known Allergies (Unverified , 02/15/16) Medication History Scheduled No Known Medications* (NKM - No Known Medications*), 0 ., (Reported) No Known Medications* (NKM - No Known Medications*), 0 ., (Reported) Ondansetron Odt* (Zofran Odt*), 4 MG BC EVERY 8 HOURS Scheduled PRN Acetaminophen (Tylenol), 650 MG ORAL Q6H PRN for Prn Pain/Headache/Temp > 101 Tramadol Hcl* (Ultram*), 50 MG ORAL Q6H PRN for For Pain Patient History History Provided By: Patient, Family Member, Medical Record, PMD Healthcare decision maker Resuscitation status Full Code Advanced Directive on File Past Medical/Surgical History Past Medical/Surgical History: (1) Palpitations (2) Overdose by acetaminophen (3) Tylenol overdose Review of Systems Psychiatric: Reports: anxiety, depressed feelings, emotional problems, SI - no plan Physical Exam General Appearance: WD/WN, alert, moderate distress, obese Neurologic: oriented x 3, responsive, depressed affect - tearful' Last 24 Hour Vital Signs Date Time Temp Pulse Resp B/P (MAP) Pulse Ox O2 Delivery O2 Flow Rate FiO2 03/03/18 08:00 106 03/03/18 08:00 Room Air 03/03/18 08:00 97.9 96 20 117/74 (88) 98 03/03/18 04:00 98.5 79 20 130/80 (97) 98 03/03/18 04:00 80 03/03/18 04:00 Room Air 03/03/18 00:00 Room Air 03/03/18 00:00 81 03/03/18 00:00 98.8 89 20 123/67 (85) 100 03/02/18 20:00 98.5 88 20 120/78 (92) 100 03/02/18 20:00 Room Air 03/02/18 16:00 Room Air 03/02/18 16:00 81 03/02/18 16:00 97.5 69 20 138/93 (108) 99 03/02/18 13:17 97.5 88 22 109/88 100 Room Air 03/02/18 13:10 78 03/02/18 13:07 Room Air 03/02/18 12:50 97.3 82 20 139/98 (112) 98 03/02/18 10:49 98.8 85 17 129/91 100 Room Air Intake and Output 03/02/18 03/03/18 19:00 07:00 Intake Total 488.5 ml 887.5 ml Balance 488.5 ml 887.5 ml Intake Oral 250 ml 200 ml IV Total 238.5 ml 687.5 ml # Voids 4 3 Laboratory Tests Test 03/02/18 19:25 03/03/18 00:50 03/03/18 06:50 Acetaminophen Level < 2 MCG/ML (10-30) L < 2 MCG/ML (10-30) L < 2 MCG/ML (10-30) L White Blood Count 10.0 K/UL (4.8-10.8) Red Blood Count 4.33 M/UL (4.20-5.40) Hemoglobin 12.5 G/DL (12.0-16.0) Hematocrit 35.9 % (37.0-47.0) L Mean Corpuscular Volume 83 FL (80-99) Mean Corpuscular Hemoglobin 28.8 PG (27.0-31.0) Mean Corpuscular Hemoglobin Concent 34.7 G/DL (32.0-36.0) Red Cell Distribution Width 13.7 % (11.6-14.8) Platelet Count 223 K/UL (150-450) Mean Platelet Volume 8.8 FL (6.5-10.1) Neutrophils (%) (Auto) 65.5 % (45.0-75.0) Lymphocytes (%) (Auto) 24.9 % (20.0-45.0) Monocytes (%) (Auto) 6.2 % (1.0-10.0) Eosinophils (%) (Auto) 2.8 % (0.0-3.0) Basophils (%) (Auto) 0.5 % (0.0-2.0) Sodium Level 138 MMOL/L (136-145) Potassium Level 3.4 MMOL/L (3.5-5.1) L Chloride Level 103 MMOL/L (98-107) Carbon Dioxide Level 24 MMOL/L (21-32) Anion Gap 11 mmol/L (5-15) Blood Urea Nitrogen 8 mg/dL (7-18) Creatinine 0.7 MG/DL (0.55-1.30) Estimat Glomerular Filtration Rate > 60 mL/min (>60) Glucose Level 112 MG/DL (74-106) H Calcium Level 8.9 MG/DL (8.5-10.1) Magnesium Level 1.7 MG/DL (1.8-2.4) L Total Bilirubin 0.4 MG/DL (0.2-1.0) Aspartate Amino Transf (AST/SGOT) 18 U/L (15-37) Alanine Aminotransferase (ALT/SGPT) 54 U/L (12-78) Alkaline Phosphatase 94 U/L (46-116) Total Protein 7.3 G/DL (6.4-8.2) Albumin 3.6 G/DL (3.4-5.0) Globulin 3.7 g/dL Albumin/Globulin Ratio 1.0 (1.0-2.7) Height (Feet): 5 Height (Inches): 4.00 Weight (Pounds): 195 Medications Current Medications Medications (Trade) Dose Ordered Sig/Paul Route PRN Reason Start Time Stop Time Status Last Admin Dose Admin Morphine Sulfate (Morphine Sulfate) 4 mg Q6HR PRN IVP For Pain 03/02/18 22:00 03/09/18 21:59 03/03/18 05:35 Assessment/Plan Problem List: (1) MDD (major depressive disorder), recurrent episode, severe ICD Codes: F33.2 - Major depressive disorder, recurrent severe without psychotic features SNOMED: [id number] Assessment/Plan voluntary to psych no pet team dc sitter celexa 20mg qam restoril 15mg qhs MIPS Medication Reconciliation Is this a Psycho/Diag encounte: Yes Unhealthy Alcohol Use 431 (psycho/diag only) Patient was screened for unhealthy alcohol use today or within the past 2 years. Patient was NOT identified as an unhealthy alcohol user.I Obtained, updated or reviewed the patient's current medications (including prescription, over the counter, herbal, and nutritional supplements).Patient was screened for unhealthy alcohol use today or within the past 2 years. Patient was NOT identified as an unhealthy alcohol user. Tobacco Use 226 (psycho/diag only) Patient was screened for tobacco use today or within the past 2 years. Patient was NOT identified as a tobacco user. BMI 128 (psycho/diag only) BMI was documented today or within the past year. BMI was outside normal parameters, and the patient received counseling. Depression 134,411,370 (psycho/diag only) Depression screening was performed today. the pt is severely depressed and will be transferred to psych unit still suicidal PHQ-9 Score: 20 Does this Patient have Dementi: No Michelle Harden MD Mar 03, 2018 10:44
[2018-03-03] MEDS ORDERED: Citalopram Hydrobromide 10mg Tab ORAL SCH (10:47)
[2018-03-03 12:00] VITALS: BP 112/76
--- NOTE | 2018-03-03 12:00 | NUR ---
NURSE NOTES: Patient denied any thoughts or harming herself or others. Due to wrist fracture - asked patient if she is in any danger or potential abuse - patient denied this as well. Able to self reposition. Stated she wanted to sleep. VSS. Sitter in the room, family at bedside. No contraband on or around patient / patient room. Will continue to monitor patient.
--- NOTE | 2018-03-03 13:31 | NUR ---
CASE MANAGEMENT: REVIEW BIBA FROM HOME CC: OVERDOSE SI: OVERDOSE T 97.3 HR 76 RR 20 BP 118/87 SAT 98% ROOM AIR ACETAMINOPHEN 66 IS: NS IVF BOLUS X1 CHARCOAL PO X1 ACETYLCYSTEINE IV X1 INTERQUAL CRITERIA MET: PATIENT ADMITTED TO STEP DOWN UNIT 03/02/2018 DCP: PATIENT IS FROM HOME CASE MANAGEMENT: REVIEW SI: OVERDOSE T 97.9 HR 96 RR 20 BP 117/74 SAT 98% ROOM AIR ACETAMINOPHEN <2 IS: CITALOPRAM PO QD MORPHINE IV Q6HR PRN STEP DOWN STATUS DCP: PATIENT IS FROM HOME
--- NOTE | 2018-03-03 14:06 | NUR ---
NURSE NOTES: NURSE NOTES: Report given to Candis RN using SBAR. VSS. No distress noted.
--- NOTE | 2018-03-03 15:38 | NUR ---
Social Work This Sw spoke with Pily French who explained patient is pending Medi ml, will not have insurance reinstated immediately. This Sw spoke with intake @ [facility] placement who explained they do not assist with placement from the floor, only from ER. This Sw contacted [facility] who will not accept patient without insurance. This SW contacted [facility] @ [phone] who will evaluate.
[2018-03-03 16:00] VITALS: BP 115/65
--- NOTE | 2018-03-03 18:15 | NUR ---
NURSE NOTES: Patient's family at bedside. Patient is socializing well with her kids.
--- NOTE | 2018-03-03 19:20 | NUR ---
NURSE NOTES: Report received from SHERLYN James. Observed pt taking with her family members on the bed side. A/O x4. Denies pain at this time. SR with telemonitor. Pt on room air with no distress noted. IV site on L AC 18G, SL, intact and patent. Bed in the lowest position. Call light within reach. Side rails up x2. Will continue to monitor.
[2018-03-03 20:00] VITALS: BP 125/76
--- NOTE | 2018-03-03 20:50 | NUR ---
NURSE NOTES:Patient receive aimee Thomason R.N. FROM [facility] ROOM # 242 Bed 1 TO 320 bed 1 Patient A/A/AOX4. Patient denies any pain at this time . no sob/ no n/v noted . LAC G#18 Patent and intact . patient skin intact . patient family at bedside . patient personal belongings with patient and family members . patient ambulate to the bathroom and voided freely without difficulties . patient instructed to uses call light when needed. will continue to monitor.
--- NOTE | 2018-03-03 21:00 | NUR ---
TRANSFER TO FLOOR: Patient transferred to Med-Surg. Report given to Damaris. Belongings given to RN. Telemonitor taken out. Family member on the bedside. No acute distress noted at this time.
[2018-03-03] MEDS ORDERED: Morphine Sulfate 4mg/ml Inj (IV/IM USE ONLY) IVP PRN (22:00)
[2018-03-04] VITALS: BP 119/77
[2018-03-04 04:00] VITALS: BP 122/79
[2018-03-04 06:51] LABS: BASOPHILS % (AUTO) 0.6 % (0.0-2.0); EOSINOPHILS % (AUTO) 6.3 % (0.0-3.0); HEMATOCRIT 36.8 % (37.0-47.0); HEMOGLOBIN 12.5 G/DL (12.0-16.0); LYMPHOCYTES % (AUTO) 37.8 % (20.0-45.0); MEAN CORPUSCULAR VOLUME 85 FL (80-99); MONOCYTES % (AUTO) 6.7 % (1.0-10.0); NEUTROPHILS % (AUTO) 48.6 % (45.0-75.0); PLATELET COUNT 223 K/UL (150-450); RED BLOOD COUNT 4.33 M/UL (4.20-5.40); WHITE BLOOD COUNT 9.3 K/UL (4.8-10.8)
[2018-03-04 07:07] LABS: ANION GAP 9 mmol/L (5-15); BLOOD UREA NITROGEN 10 mg/dL (7-18); CARBON DIOXIDE 27 MMOL/L (21-32); CHLORIDE 102 MMOL/L (98-107); CREATININE 0.7 MG/DL (0.55-1.30); POTASSIUM 3.9 MMOL/L (3.5-5.1); SODIUM 138 MMOL/L (136-145)
--- NOTE | 2018-03-04 07:14 | Discharge Summary ---
Discharge Summary Hospital Course Date of Admission Mar 02, 2018 at 08:45 Date of Discharge 03/04/18 Admitting Diagnosis TYLENOL TOXICITY,OVERDOSE HPI Cassidy Ramírez is a 23 year old female who was admitted on Mar at 08:45 for Tylenol Toxicity, Overdose hx of low level of depression that got worse over the past several months. The pt was bib sister reporting that the pt took Tylenol (20 pills). The pt endorses depressed mood, anhedonia, fatigue and suicidal thoughts. sister was in the room and accompanying the pt. the pt does not have a plan. the pt has no intention to end her life however was afraid to be discharged and go home in this condition. the pt has a baby who has been with the pts mother. the pt stated that she has been through relationship issues with the boyfriend. the pt stated that the bf has cheated on her for a while. the pt would like to be started on sleeping and depressive medications. The pt does not endorse any psychotic/manic sxs. tylenol levels neg now LFTs remained stable planned for transfer to inpatient psych facility patient medically stable for dc to inpatient psych facility Physical Exam: General Appearance: WD/WN, no apparent distress, alert Lines, tubes and drains: peripheral HEENT: normocephalic, atraumatic, mucous membranes moist, PERRL Neck: non-tender, normal alignment, supple, normal inspection Respiratory/Chest: chest wall non-tender, lungs clear, normal breath sounds, no respiratory distress, no accessory muscle use Cardiovascular/Chest: normal peripheral pulses, normal rate, regular rhythm Abdomen: normal bowel sounds, non tender, soft, no organomegaly, no mass Extremities: normal range of motion, non-tender, normal inspection, no calf tenderness, normal capillary refill Skin Exam: normal pigmentation, warm/dry Neurologic: metal sprayer II-XII grossly normal, no motor/sensory deficits, alert, oriented x 3, responsive, normal mood/affect Hospital Course #Suicidal Attempt #Depression #Tylenol Overdose #Nausea tylenol level 153 on admit, trended tylenol level, neg now acetadote given LFTs wnl zofran prn IVF psych consulted, pending recs sitter safety tray for meals tylenol and alcohol ingestion denies any SI currently q4hr neuro checks tele #Smoker smoking 1-2 cigarettes per day educated on smoking cessation for over 15 mins today, patient states she understands and will try to stop #Alcohol abuse drank alcohol yesterday, unsure of how much denies daily use of alcohol or past abuse educated on alcohol cessation for over 15 mins today , states she understands diet: regular DVT Prophylaxis: SCD Code Status: Full Hospital Classification Declaration: Based on this initial evaluation, and depending on the patient's clinical course, I anticipate that this patient will require hospitalization for 2-3 days for tylenol overdose and Suicide attempt and close respiratory/hemodynamic monitoring. Disposition: Once the patient is stable to leave the hospital, I anticipate the patient will likely be discharged to the following environment: home with HH vs SNF I spent over 40 minutes on this patient's case, discharge/dispo planning and/ or care coordination. Discussed with patient/family, nursing staff, SW/CM regarding clinical status, treatment course, and disposition planning. Time of note may not reflect time of encounter. ---- Date of Discussion: 03/02/18 A [id number] discussion with the patient regarding the patient's advanced care planning took place during this hospitalization on the above date. The discussion included the explanation and discussion of advance directives and associated forms/documents, as well as the patient's current code status. We also discussed at length the patient's medical conditions (both acute and chronic), general prognosis, treatment options, and goals of care. The following summarizes the discussion: Advance Care Planning/Goals of Care: - Will attempt to fill out an AD and/or POLST with the patient prior to discharge, if not already completed - Continue current evaluation and management of any acute and chronic medical issues - Will continue to support the patient/family - Will continue to discuss both short- and long-term goals of care DPOA-HC/Surrogate Decision Maker: None currently appointed Code Status: Full Code AD Forms/Documents Completed: Deferred A total of 35 minutes was spent on this discussion, including counseling, answering questions, and completing, if any, pertinent advanced care planning forms/documents. Discharge Medications Discontinued Medications: Acetaminophen (Tylenol) 325 Mg Tablet 650 MG ORAL Q6H PRN for Prn Pain/Headache/Temp > 101, #20 TAB 0 Refills No Known Medications* (NKM - No Known Medications*) . 0 ., 0 Refills No Known Medications* (NKM - No Known Medications*) . 0 ., 0 Refills Ondansetron Odt* (Zofran Odt*) 4 Mg Tab.rapdis 4 MG BC EVERY 8 HOURS, #6 TAB 1 Refill Tramadol Hcl* (Ultram*) 50 Mg Tablet 50 MG ORAL Q6H PRN for For Pain, #6 TAB 0 Refills Discharge Condition Upon Discharge: stable Discharge Disposition Patient was discharged to psych facility Discharge Diagnoses: (1) Suicide attempt (2) Tylenol overdose (3) MDD (major depressive disorder), recurrent episode, severe Yogi Ross MD Mar 04, 2018 07:14
--- NOTE | 2018-03-04 07:15 | NUR ---
HAND-OFF: Report given to Antonella Best
[2018-03-04 08:00] VITALS: BP 125/83
--- NOTE | 2018-03-04 08:12 | NUR ---
NURSE NOTES: Report received from outgoing RN, rounds made. Patient sleeping, family member at bedside. Vitals stable, no distress noted. Will continue to monitor.
--- NOTE | 2018-03-04 08:19 | NUR ---
Social Work This SW spoke with intake @ [facility] who accepts Medi ml pending, but will need 51/50 hold (No pet team available to come to the floor). This SW spoke with [facility] (accepting voluntary patients), who does not accept Medi ml pending. [facility] @ [facility] requesting 51/50 hold (no PET team to come to the floor) and accepting only active Medi ml.
[2018-03-04] MEDS ORDERED: Citalopram Hydrobromide 10mg Tab ORAL SCH (09:00)
--- NOTE | 2018-03-04 10:33 | NUR ---
SS note Manolo Nascimento provided this Sw with a [facility] number: [id number]. This Sw sent referral to [facility] (Voluntary placement; does not need hold) to evaluate. phone: [phone] fax: [phone].
[2018-03-04 12:00] VITALS: BP 121/62
--- NOTE | 2018-03-04 12:14 | NUR ---
Social Work Patient has been accepted to the following [facility]: [address] [address] [address] Johnson to admit RN to RN report to be made to Brenda: [phone]
--- NOTE | 2018-03-04 15:56 | NUR ---
CASE MANAGEMENT: REVIEW SI: OVERDOSE T 97.2 HR 77 RR 18 BP 121/62 SAT 98% ROOM AIR IS: CITALOPRAM PO QD MORPHINE IV Q6HR PRN STEP DOWN STATUS DCP: PATIENT IS FROM HOME
[2018-03-04 16:00] VITALS: BP 123/87
--- NOTE | 2018-03-04 16:00 | NUR ---
NURSE NOTES: Called [facility] at [phone], report given to Isis PLATA, assigned MD: Alex. transportation arranged with [facility] [phone] to orange picker machine operator at 19:30 (per facility request). pt and pt's family are aware and given info, they agreed to d/c plan. I will f/u as needed.
[2018-03-04] MEDS ORDERED: ALPRAZolam 0.5mg tab ORAL SCH (17:00)
--- NOTE | 2018-03-04 18:45 | NUR ---
NURSE NOTES: Patient sleeping on and off throughout the shift, easily arousable, answeres calmly/appropriately, positions self in bed. Sister at bedside with patient at all times. Left AC heplock intact. Denies pain. Vitals stable, on room air. Appetite good. Voiding in bathroom. Patient medicated with one time dose of Xanax 0.5 mg, urine specimen collected for HCG, results negative. Discharge/transfer scheduled for today to [facility], patient and family aware. Call light in reach, bed in lowest position, patient remains safe.
--- NOTE | 2018-03-04 19:45 | NUR ---
NURSE NOTES: Patient transferred to [facility] via [facility] ambulance at 1945, in stable condition. IV heplock removed. Family at bedside.
--- NOTE | 2018-03-05 00:19 | General Progress Note ---
Assessment/Plan Problem List: (1) MDD (major depressive disorder), recurrent episode, severe ICD Codes: F33.2 - Major depressive disorder, recurrent severe without psychotic features SNOMED: 320391126704 Status: unchanged Assessment/Plan voluntary to psych no pet team dc sitter celexa 20mg qam restoril 15mg qhs Subjective Neurologic/Psychiatric: Reports: anxiety, depressed, emotional problems Allergies: Coded Allergies: No Known Allergies (Unverified , 02/15/16) Objective Last 24 Hour Vital Signs Date Time Temp Pulse Resp B/P (MAP) Pulse Ox O2 Delivery O2 Flow Rate FiO2 03/04/18 16:00 97.9 86 19 123/87 (99) 99 03/04/18 12:00 97.2 75 18 121/62 (81) 99 03/04/18 09:00 Room Air 03/04/18 08:00 97.9 77 18 125/83 (97) 98 03/04/18 04:00 98.0 94 18 122/79 (93) 98 Intake and Output 03/04/18 03/05/18 19:00 07:00 Intake Total 500 ml Balance 500 ml Intake Oral 500 ml # Voids 3 Laboratory Tests 03/04/18 06:25: White Blood Count 9.3, Red Blood Count 4.33, Hemoglobin 12.5, Hematocrit 36.8L, Mean Corpuscular Volume 85, Mean Corpuscular Hemoglobin 29.0, Mean Corpuscular Hemoglobin Concent 34.1, Red Cell Distribution Width 14.0, Platelet Count 223, Mean Platelet Volume 8.2, Neutrophils (%) (Auto) 48.6, Lymphocytes (%) (Auto) 37.8, Monocytes (%) (Auto) 6.7, Eosinophils (%) (Auto) 6.3H, Basophils (%) (Auto ) 0.6, Sodium Level 138, Potassium Level 3.9, Chloride Level 102, Carbon Dioxide Level 27, Anion Gap 9, Blood Urea Nitrogen 10, Creatinine 0.7, Estimat Glomerular Filtration Rate > 60, Glucose Level 102, Calcium Level 9.0 03/04/18 17:20: Urine HCG, Qualitative Negative Height (Feet): 5 Height (Inches): 4.00 Weight (Pounds): 195 General Appearance: alert Neurologic: oriented x 3, responsive, depressed affect Michelle Harden MD Mar 05, 2018 00:19
== END 2018-03-04 19:45 | DRG 918 ==
LOC: EMR 07:10 → 2W 08:45 → EDBEDREQ 09:09 → 3E 03-03 20:35
DX: T39.1X2A Poisoning by 4-Aminophenol derivatives, intentional self-harm, initial encounter (principal); F33.9 Major depressive disorder, recurrent, unspecified; R11.0 Nausea; Y92.009 Unspecified place in unspecified non-institutional (private) residence as the place of occurrence of the external cause; F17.200 Nicotine dependence, unspecified, uncomplicated; F10.10 Alcohol abuse, uncomplicated
CPT/HCPCS: 36415; 80048; 80053; 80307; 80329; 81003; 81025; 83735; 85025; 96361; 96365; 99291; J8499

== ENCOUNTER 2018-10-20 22:46 | Emergency (ER) | payer MEDICAID ==
[~2018-10-20] VITALS: Ht 162.6 cm; Wt 90.7 kg
[2018-10-20 22:50] VITALS: BP 126/74
--- NOTE | 2018-10-20 22:50 | NUR ---
Note cristaalisa in EDM - 10/20/18 at 2306 by MAXI ED Nurse Note: Patient walked into ED c/o itchiness and bumps all over her body. patient states that she ate seafood last night and began feeling ritchiness across her body, denies any SOB
--- NOTE | 2018-10-20 22:50 | NUR ---
ED Nurse Note: Patient walked into ED c/o itchiness and bumps all over her body. patient states that she ate seafood last night and began feeling itchiness across her body, denies any SOB
[2018-10-20] MEDS ORDERED: MEDROL DOSEPAK4 MG ORAL (23:51)
[2018-10-20] MEDS ORDERED: BENADRYL25 MG ORAL (23:51)
[2018-10-21 00:01] VITALS: BP 121/87
--- NOTE | 2018-10-21 00:01 | NUR ---
ER DISCHARGE NOTE: Patient is cleared to be discharged per ERMD, pt is aox4, on room air, with stable vital signs. pt was given dc and prescription instructions, pt was able to verbalize understanding, pt id bandremoved. pt is able to ambulate with steady gait. pt took all belongings.
--- NOTE | 2018-10-21 03:53 | Emergency Room Report ---
History of Present Illness General Chief Complaint: Allergic Reaction Source: Patient Present Illness HPI Patient presents with complaints of itching diffusely Reports that over the past 3 days she has felt increased itching on the upper arms chest and lower legs denies any shortness of breath Denies any fevers patient is not sure what she has a reaction to Denies any dysuria frequency denies any recent antibiotics Allergies: Coded Allergies: No Known Allergies (Unverified , 02/15/16) Patient History Past Medical History: see triage record Last Menstrual Period: 10/17/18 Now: No : 2 Para: 2 Reviewed Nursing Documentation: PMH: Agreed; PSxH: Agreed Nursing Documentation-PMH Past Medical History: No History, Except For Hx Cardiac Problems: No Hx Cancer: No Hx Gastrointestinal Problems: Yes - Gastritis Hx Neurological Problems: No Review of Systems All Other Systems: negative except mentioned in HPI Physical Exam Vital Signs Date Time Temp Pulse Resp B/P (MAP) Pulse Ox O2 Delivery O2 Flow Rate FiO2 10/20/18 22:50 82 16 10/20/18 22:50 98.7 126/74 100 Room Air Sp02 EP Interpretation: reviewed, normal General Appearance: well appearing, no apparent distress Head: normocephalic, atraumatic Eyes: bilateral eye PERRL, bilateral eye EOMI ENT: hearing grossly normal, normal pharynx, TMs + canals normal, uvula midline Neck: full range of motion, supple, no meningismus, no bony tend Respiratory: lungs clear, normal breath sounds, no rhonchi, no respiratory distress, no retraction, no accessory muscle use Cardiovascular #1: normal peripheral pulses, regular rate, rhythm, no edema, no gallop, no JVD, no murmur Gastrointestinal: normal bowel sounds, non tender, soft, no mass, no organomegaly, non-distended, no guarding, no hernia, no pulsatile mass, no rebound Genitourinary: no CVA tenderness Musculoskeletal: normal inspection Neurologic: oriented x3, responsive, terminal carman III-XII nml as tested, motor strength/ tone normal, sensory intact Psychiatric: mood/affect normal Skin: other - Some areas where the patient has scratched, no obvious dermatomal rash, there are several areas involving the left arm appears to be possible insect bite, no target cell appearance Lymphatic: normal inspection, no adenopathy Medical Decision Making Diagnostic Impression: Primary Impression: Allergic reaction ER Course Patient appears to be having a reaction The source is not clear however the airway appears patent and patient has benign medical evaluation at this time initially conservatively treated and will have close outpatient follow-up Last Vital Signs Date Time Temp Pulse Resp B/P (MAP) Pulse Ox O2 Delivery O2 Flow Rate FiO2 10/21/18 00:01 98.5 80 18 121/87 98 Room Air Status: improved Disposition: HOME, SELF-CARE Condition: Improved Scripts Diphenhydramine Hcl* (BENADRYL*) 25 Mg Capsule 25 MG ORAL Q6H PRN for Itching, #30 CAP Prov: Kit Leroy DO 10/20/18 Methylprednisolone (Methylprednisolone*) 4MG Dspk 4 MG ORAL DIRECTED for 6 Days, #21 EA 0 Refills Day 1: Two tablets before breakfast, one after lunch, one after dinner, and two at bedtime. If started late in the day, take all six tablets at once or divide into two or three doses, unless otherwise directed by prescriber. Day 2: One tablet before breakfast, one after lunch, one after dinner, and two at bedtime Day 3: One tablet before breakfast, one after lunch, one after dinner, and one at bedtime Day 4: One tablet before breakfast, one after lunch, and one at bedtime Day 5: One tablet before breakfast and one at bedtime Day 6: One tablet before breakfast Prov: Kit Leroy DO 10/20/18 Referrals: NOT CHOSEN IPA/MD,REFERRING (PCP) [facility] Vania Gomez. [facility] Patient Instructions: Allergies Additional Instructions: Patient is provided with the discharge instructions notified to follow up with primary doctor in the next 2-3 days otherwise return to the er with any worsening symptoms. Please note that this report is being documented using [employer] technology. This can lead to erroneous entry secondary to incorrect interpretation by the dictating instrument. Kit Leroy DO Oct 21, 2018 03:53
== END 2018-10-21 01:00 | disposition home or self-care (01) ==
LOC: EMR 23:22
DX: T78.40XA Allergy, unspecified, initial encounter (principal); L29.9 Pruritus, unspecified; X58.XXXA Exposure to other specified factors, initial encounter
CPT/HCPCS: 99282; J7512

== ENCOUNTER 2019-04-07 10:42 | Emergency (ER) | payer MEDICAID ==
[~2019-04-07] VITALS: Ht 162.6 cm; Wt 95.3 kg
[~2019-04-07 10:42] MED LIST changes: +BENADRYL25 MG ORAL; +MEDROL DOSEPAK4 MG ORAL
[2019-04-07 11:00] VITALS: BP 122/84
[2019-04-07 11:42] LABS: BASOPHILS % (AUTO) 0.4 % (0.0-2.0); EOSINOPHILS % (AUTO) 2.1 % (0.0-3.0); HEMATOCRIT 37.1 % (37.0-47.0); HEMOGLOBIN 13.5 G/DL (12.0-16.0); LYMPHOCYTES % (AUTO) 21.4 % (20.0-45.0); MEAN CORPUSCULAR VOLUME 89 FL (80-99); MONOCYTES % (AUTO) 5.3 % (1.0-10.0); NEUTROPHILS % (AUTO) 70.8 % (45.0-75.0); PLATELET COUNT 233 K/UL (150-450); RED BLOOD COUNT 4.16 M/UL (4.20-5.40); WHITE BLOOD COUNT 8.9 K/UL (4.8-10.8)
[2019-04-07 11:50] LABS: APPEARANCE,URINE SLIGHTLY CLOUDY; BILIRUBIN, URINE NEGATIVE (NEGATIVE); COLOR,URINE PALE YELLOW; GLUCOSE, URINE (UA) NEGATIVE (NEGATIVE); KETONES,URINE NEGATIVE (NEGATIVE); LEUKOCYTE ESTERASE ,URINE 3+ (NEGATIVE); NITRITE,URINE NEGATIVE (NEGATIVE); PH,URINE 7 (4.5-8.0); PROTEIN,URINE NEGATIVE (NEGATIVE); UROBILINOGEN,URINE NORMAL MG/DL (0.0-1.0)
[2019-04-07 11:57] LABS: ANION GAP 9 mmol/L (5-15); BLOOD UREA NITROGEN 11 mg/dL (7-18); CALCIUM 8.7 MG/DL (8.5-10.1); CARBON DIOXIDE 29 MMOL/L (21-32); CHLORIDE 101 MMOL/L (98-107); CREATININE 0.7 MG/DL (0.55-1.30); POTASSIUM 3.5 MMOL/L (3.5-5.1); SODIUM 139 MMOL/L (136-145)
[2019-04-07 12:08] LABS: ALANINE AMINOTRANSFERASE 40 U/L (12-78); ALBUMIN 3.3 G/DL (3.4-5.0); ALBUMIN/GLOBULIN RATIO 0.8 (1.0-2.7); ALKALINE PHOSPHATASE 63 U/L (46-116); ASPARTATE AMINO TRANSFERASE 13 U/L (15-37); BILIRUBIN,TOTAL 0.3 MG/DL (0.2-1.0)
--- NOTE | 2019-04-07 13:00 | Emergency Room Report ---
History of Present Illness General Chief Complaint: Back Pain-No Injury Source: Patient Present Illness HPI This patient is 8 weeks . She states that for the past 2 days she has had back pain. She states that she does do some lifting at her job. She denies dysuria or hematuria. She denies vaginal bleeding. She has had some nausea and vomiting. She denies abdominal pain. She has no other complaints. Allergies: Coded Allergies: No Known Allergies (Unverified , 02/15/16) Patient History Past Medical History: see triage record, GERD Social History: Denies: smoking, alcohol use, drug use Now: Yes : 3 Para: 2 Reviewed Nursing Documentation: PMH: Agreed; PSxH: Agreed Nursing Documentation-PMH Hx Cardiac Problems: No Hx Cancer: No Hx Gastrointestinal Problems: Yes - Gastritis Hx Neurological Problems: No Review of Systems All Other Systems: negative except mentioned in HPI Physical Exam Vital Signs Date Time Temp Pulse Resp B/P (MAP) Pulse Ox O2 Delivery O2 Flow Rate FiO2 04/07/19 10:49 98.1 Room Air 04/07/19 11:00 86 18 122/84 98 Sp02 EP Interpretation: reviewed, normal General Appearance: no apparent distress, alert, GCS 15, non-toxic Head: normocephalic, atraumatic Eyes: bilateral eye normal inspection, bilateral eye PERRL ENT: hearing grossly normal, no angioedema, normal voice Neck: full range of motion, supple/symm/no masses Respiratory: no respiratory distress, no retraction, no accessory muscle use, speaking full sentences Cardiovascular #1: regular rate, rhythm, no edema Gastrointestinal: normal bowel sounds, non tender, soft, non-distended, no guarding, no rebound Rectal: deferred Musculoskeletal: normal range of motion, gait/station normal, non-tender Neurologic: alert, motor strength/tone normal, oriented x3, sensory intact, responsive, speech normal Psychiatric: judgement/insight normal, memory normal, mood/affect normal, no suicidal/homicidal ideation Skin: no rash, normal color Medical Decision Making Diagnostic Impression: Primary Impression: UTI (urinary tract infection) Additional Impression: Back pain ER Course Patient has a clinical presentation consistent with simple UTI. There are no systemic symptoms to include fever, chills, sweating, nausea or vomiting that would make me concerned for pyelonephritis. Overall this patient's evaluation is benign. Patient is stable for outpatient oral antibiotic therapy. The patient is , so will extend her course for 10 days. A pelvic ultrasound shows a 7-week with normal heart tones. The patient was given return precautions and followup instructions. Laboratory Tests Test 04/07/19 11:15 White Blood Count 8.9 K/UL (4.8-10.8) Red Blood Count 4.16 M/UL (4.20-5.40) L Hemoglobin 13.5 G/DL (12.0-16.0) Hematocrit 37.1 % (37.0-47.0) Mean Corpuscular Volume 89 FL (80-99) Mean Corpuscular Hemoglobin 32.3 PG (27.0-31.0) H Mean Corpuscular Hemoglobin Concent 36.2 G/DL (32.0-36.0) H Red Cell Distribution Width 11.0 % (11.6-14.8) L Platelet Count 233 K/UL (150-450) Mean Platelet Volume 8.3 FL (6.5-10.1) Neutrophils (%) (Auto) 70.8 % (45.0-75.0) Lymphocytes (%) (Auto) 21.4 % (20.0-45.0) Monocytes (%) (Auto) 5.3 % (1.0-10.0) Eosinophils (%) (Auto) 2.1 % (0.0-3.0) Basophils (%) (Auto) 0.4 % (0.0-2.0) Urine Color Pale yellow Urine Appearance Slightly cloudy Urine pH 7 (4.5-8.0) Urine Specific Renick 1.010 (1.005-1.035) Urine Protein Negative (NEGATIVE) Urine Glucose (UA) Negative (NEGATIVE) Urine Ketones Negative (NEGATIVE) Urine Blood 4+ (NEGATIVE) H Urine Nitrite Negative (NEGATIVE) Urine Bilirubin Negative (NEGATIVE) Urine Urobilinogen Normal MG/DL (0.0-1.0) Urine Leukocyte Esterase 3+ (NEGATIVE) H Urine RBC 20-30 /HPF (0 - 2) H Urine WBC Tntc /HPF (0 - 2) H Urine Squamous Epithelial Cells Many /LPF (NONE/OCC) H Urine Amorphous Sediment Moderate /LPF (NONE) H Urine Bacteria Moderate /HPF (NONE) H Sodium Level 139 MMOL/L (136-145) Potassium Level 3.5 MMOL/L (3.5-5.1) Chloride Level 101 MMOL/L (98-107) Carbon Dioxide Level 29 MMOL/L (21-32) Anion Gap 9 mmol/L (5-15) Blood Urea Nitrogen 11 mg/dL (7-18) Creatinine 0.7 MG/DL (0.55-1.30) Estimate Glomerular Filtration Rate > 60 mL/min (>60) Glucose Level 122 MG/DL (74-106) H Calcium Level 8.7 MG/DL (8.5-10.1) Total Bilirubin 0.3 MG/DL (0.2-1.0) Aspartate Amino Transferase (AST) 13 U/L (15-37) L Alanine Aminotransferase (ALT) 40 U/L (12-78) Alkaline Phosphatase 63 U/L (46-116) Total Protein 7.5 G/DL (6.4-8.2) Albumin 3.3 G/DL (3.4-5.0) L Globulin 4.2 g/dL Albumin/Globulin Ratio 0.8 (1.0-2.7) L Human Chorionic Gonadotropin, Quant 54396 mIU/mL (1-6) H CT/MRI/US Diagnostic Results CT/MRI/US Diagnostic Results : Imaging Test Ordered: US Pelvis Impression Intrauterine with approximate dates of 7 weeks. Heart rate 156. Last Vital Signs Date Time Temp Pulse Resp B/P (MAP) Pulse Ox O2 Delivery O2 Flow Rate FiO2 04/07/19 11:00 98.1 86 18 122/84 98 Room Air Status: improved Disposition: HOME, SELF-CARE Condition: Improved Referrals: NOT CHOSEN IPA/,REFERRING (PCP) Patient Instructions: Back Pain, Adult Annie Acosta DO Apr 07, 2019 13:00
[2019-04-07] MEDS ORDERED: CEPHALEXIN500 M1 ORAL (13:44)
[2019-04-07 13:54] VITALS: BP 121/67
--- NOTE | 2019-04-07 14:03 | Diagnostic Imaging Report ---
Indication: . Pelvic pain Technique: Grayscale and duplex Doppler imaging of the pelvis performed utilizing a transabdominal scan. Comparison: None Findings: The patient declines endovaginal examination. There is evidence of an intrauterine with signs of viability. heart motion demonstrated. heart rate 154 bpm. Gestational age is estimated at 7 weeks 6 days by crown-rump length measurement 1.47 cm. This is less accurate on a transabdominal scan and then on endovaginal scan. The right ovary measures 3.6 x 1.8 x 3.2 cm. The left ovary 2.3 x 1.6 x 2.1 cm. There is dopplerable blood flow within both ovaries. There is no free fluid. IMPRESSION: Single viable intrauterine gestational age estimated at 7 weeks 6 days. Limited evaluation due to lack of endovaginal study.
== END 2019-04-07 13:54 | disposition home or self-care (01) ==
LOC: EMR 11:31
DX: O23.41 Unspecified infection of urinary tract in pregnancy, first trimester (principal); O26.891 Other specified pregnancy related conditions, first trimester; M54.9 Dorsalgia, unspecified; Z3A.01 Less than 8 weeks gestation of pregnancy
CPT/HCPCS: 36415; 76801; 80053; 81003; 84702; 85025; 87086; Z7502; 99284